=== PATIENT | male | born 2000 | race Caucasian/White ===

== ENCOUNTER 2022-08-23 13:12 | Emergency (ER) | payer BC, OTHER ==
[~2022-08-23] VITALS: Ht 185.4 cm; Wt 61.0 kg
[2022-08-23 13:19] VITALS: BP 141/62
[2022-08-23] MEDS ORDERED: VISCOUS LIDOCAINE 2% 15 ML UDC MM STA (16:00)
[2022-08-23] MEDS ORDERED: TETRACAINE/BENZOCAINE/BUTAMBEN 20 GM SPRAY MM NR (16:00)
[2022-08-23] MEDS ORDERED: VISCOUS LIDOCAINE 2% 15 ML UDC MM NR (16:15)
== END 2022-08-23 15:50 | disposition home or self-care (01) ==
LOC: ER 13:12
DX: T17.928A Food in respiratory tract, part unspecified causing other injury, initial encounter (principal); X58.XXXA Exposure to other specified factors, initial encounter; Y93.9 Activity, unspecified; Y92.89 Other specified places as the place of occurrence of the external cause; Y99.8 Other external cause status
CPT/HCPCS: 70360; 71045; 99284